=== PATIENT | male | born 1980 | race Hispanic/Latino ===

== ENCOUNTER 2022-07-01 12:41 | Inpatient (IN) | payer SELFPAY ==
[2022-07-01] MEDS ORDERED: MAGNESIUM SULFATE 1 gm IVPB 1 GM/100 ML BAG IV ONE (13:18)
[2022-07-01] MEDS ORDERED: AMIODARONE HCL 150 MG/3 ML INJ IV ONE (13:18)
[2022-07-01] MEDS ORDERED: D5W 100 ML IV ONE (13:19)
[2022-07-01] MEDS ORDERED: AMIODARONE IN DEXTROSE,ISO-OSM 0 MG/0 ML BAG IV ONE (13:22)
[2022-07-01 13:37] LABS: Absolute Lymphocytes (CBC) 2.5 K/uL (0.7-4.9); Hematocrit 54.3 % (39.6-49.0); Lymphocytes % 25.3 % (15.3-44.8); MCV 89.3 fL (80-100); RBC Red Blood Cell Count 6.08 M/uL (4.33-5.43)
--- NOTE | 2022-07-01 13:52 | RAD REPORT ---
EXAM DESCRIPTION: RAD - Chest Single View - 07/01/2022 1:14 pm CLINICAL HISTORY: PALPITATIONS Chest pain. COMPARISON: No comparisons FINDINGS: Portable technique limits examination quality. The lungs are grossly clear. The heart is normal in size. No displaced fractures. IMPRESSION: No acute intrathoracic process suspected.
[2022-07-01 13:57] LABS: Potassium 3.6 mmol/L (3.5-5.1); Troponin High Sensitivity 6.1 pg/mL (<58.9)
[2022-07-01] MEDS ORDERED: METOPROLOL TAR 25 MG TAB ONE (14:41)
[2022-07-01] MEDS ORDERED: AMIODARONE HCL 900 MG in Dextrose 5%-Water 482 ML IV SCH (15:00)
--- NOTE | 2022-07-01 15:26 | EDPHYS ---
Physician Documentation [facility] Name: Coy Samayoa Age: 42 yrs Sex: Male : 1980 Arrival Date: 07/01/2022 Time: 12:48 Bed 20 Private MD: ED Physician Hoang Wu HPI: 07/01 15:22 This 42 yrs old Male presents to ER via Ambulatory with complaints of rn Palpitations. 15:22 The patient presents with a history of irregular heart beat, heart racing. Context: The rn symptoms occur at rest. Onset: The symptoms/episode began/occurred today. Duration: The patient or guardian reports a single episode. Modifying factors: The symptoms are aggravated by nothing. The symptoms are alleviated by nothing. Severity of symptoms: At their worst the symptoms were moderate in the emergency department the symptoms are unchanged. The patient has experienced a previous episode. The patient has not recently seen a physician. Historical: - Allergies: 12:52 Alprazolam; ld1 - Home Meds: 12:52 Amiodarone Oral [Active]; ld1 - PMHx: 12:52 Hypertensive disorder; Atrial fibrillation; ld1 - PSHx: 12:52 None; ld1 - Immunization history:: Adult Immunizations up to date, Client reports having NOT received the Covid vaccine. - Social history:: Smoking status: Patient denies any tobacco usage or history of. Patient/guardian denies using alcohol. - Family history:: not pertinent. - Hospitalizations: : No recent hospitalization is reported. ROS: 15:22 Constitutional: Negative for fever, chills, and weight loss, Eyes: Negative for injury, rn pain, redness, and discharge, Neck: Negative for injury, pain, and swelling, Cardiovascular: + palpitations, neg for chest pain Respiratory: Negative for shortness of breath, cough, wheezing, and pleuritic chest pain, Abdomen/GI: Negative for abdominal pain, nausea, vomiting, diarrhea, and constipation, MS/Extremity: Negative for injury and deformity, Skin: Negative for injury, rash, and discoloration, Neuro: Negative for headache, weakness, numbness, tingling, and seizure. Exam: 15:22 Constitutional: This is a well developed, well nourished patient who is awake, alert, rn and in no acute distress. Head/Face: Normocephalic, atraumatic. Cardiovascular: Tachycardic, irregular Respiratory: No increased work of breathing, no retractions or nasal flaring. Abdomen/GI: Soft, non-tender Skin: Warm, dry MS/ Extremity: Pulses equal, no cyanosis. Neurovascular intact. Full, normal range of motion. Equal circumference. Neuro: Awake and alert, GCS 15 15:47 ECG was reviewed by the Attending Physician. rn Vital Signs: 12:50 Pulse 168; Resp 14; Temp 98.4(TE); Pulse Ox 99% on R/A; Weight 136.08 kg; Height 6 ft. ld1 3 in. (190.50 cm); Pain 0/10; 13:00 BP 145 / 94; Pulse 150; Resp 11; Pulse Ox 94% on R/A; em6 14:00 BP 122 / 95; Pulse 154; Resp 18; Pulse Ox 95% ; em6 15:00 BP 144 / 116; Pulse 97; Resp 18; Pulse Ox 95% on R/A; em6 16:00 BP 125 / 83; Pulse 78; Resp 13; Pulse Ox 96% on R/A; em6 17:00 BP 127 / 79; Pulse 70; Resp 14; Pulse Ox 98% on R/A; em6 18:00 BP 118 / 77; Pulse 67; Resp 14; Pulse Ox 96% on R/A; em6 19:21 BP 116 / 69; Pulse 69; Resp 18 S; Pulse Ox 98% on R/A; lg3 12:50 Body Mass Index 37.50 (136.08 kg, 190.50 cm) ld1 MDM: 12:49 Patient medically screened. rn 15:22 Differential diagnosis: arrythmia, dehydration, stress disorder. Data reviewed: vital rn signs, nurses notes, lab test result(s), EKG, and as a result, I will admit patient. Counseling: I had a detailed discussion with the patient and/or guardian regarding: the historical points, exam findings, and any diagnostic results supporting the discharge/admit diagnosis, lab results, radiology results, the need for further work-up and treatment in the hospital. Response to treatment: the patient's symptoms have mildly improved after treatment, and as a result, I will admit patient. Admission orders: after a detailed discussion of the patient's condition and case, the admit orders are written by me. 07/01 13:00 Order name: Basic Metabolic Panel; Complete Time: 14:04 rn 07/01 13:00 Order name: CBC with Diff; Complete Time: 14:04 rn 07/01 13:00 Order name: NT PRO-BNP; Complete Time: 14:04 rn 07/01 13:00 Order name: Troponin HS; Complete Time: 14:04 rn 07/01 16:13 Order name: SARS RAPID em6 07/01 16:53 Order name: SARS-COV-2 Antigen Rapid; Complete Time: 17:13 EDWY 07/01 13:00 Order name: XRAY Chest (1 view); Complete Time: 14:04 rn 07/01 20:08 Order name: Troponin High Sensitivity EDW[facility] 07/01 20:13 Order name: Thyroid Stimulating Hormone EDWY 07/02 03:53 Order name: CBC with Automated Diff EDWY 07/02 04:17 Order name: Basic Metabolic Panel ED[facility] 07/01 13:00 Order name: EKG; Complete Time: 13:01 rn 07/01 13:00 Order name: Cardiac monitoring; Complete Time: 13:02 rn 07/01 13:00 Order name: EKG - Nurse/Tech; Complete Time: 13:02 rn 07/01 13:00 Order name: IV Saline Lock; Complete Time: 13:58 rn 07/01 13:00 Order name: Labs collected and sent; Complete Time: 13:59 rn 07/01 13:00 Order name: O2 Per Protocol; Complete Time: 13:59 rn 07/01 13:00 Order name: O2 Sat Monitoring; Complete Time: 13:59 rn 07/01 17:14 Order name: Misc. Order: Stop amiodarone drip; Complete Time: 19:13 snw EC:47 Rate is 148 beats/min. Rhythm is irregularly irregular. QRS [place] is Normal. NM interval rn is normal. QRS interval is normal. QT interval is normal. No Q waves. T waves are Normal. No ST changes noted. Clinical impression: Atrial Fibrillation. Interpreted by me. Reviewed by me. Administered Medications: 19:13 Discontinued: amiodarone 900 mg, D5W 500 ml IVPB at 1 mg/min continuous; for 6 hrs, lg3 then change to 0.5 mg/min 13:26 Drug: amiodarone 150 mg Volume: 100 ml; Route: IVPB; Infused Over: 10 mins; Site: right em6 antecubital; 15:17 Follow up: Response: No adverse reaction; IV Status: Completed infusion em6 13:35 Drug: Magnesium Sulfate 1 grams Route: IVPB; Infused Over: 1 hrs; Site: right em6 antecubital; 14:40 Follow up: IV Status: Completed infusion; IV Intake: 250ml em6 14:37 Drug: Metoprolol 25 mg Route: PO; em6 15:16 Follow up: Response: No adverse reaction em6 15:00 Drug: amiodarone 900 mg, D5W 500 ml Route: IVPB; Rate: 1 mg/min; Site: right em6 antecubital; 19:18 Drug: morphine 4 mg Route: IVP; Infused Over: 4 mins; Site: right antecubital; lg3 19:21 Follow up: Response: No adverse reaction; Marked relief of symptoms lg3 21:10 Drug: Zofran (Ondansetron) 4 mg Route: IVP; Site: right antecubital; lg3 Disposition Summary: 07/01/22 15:26 Hospitalization Ordered Hospitalization Status: Inpatient Admission rn Provider: Jem Pierce rn Condition: Stable rn Problem: an acute exacerbation rn Symptoms: have improved rn Bed/Room Type: Standard rn Location: Telemetry/MedSurg (Inpatient)(07/02/22 11:37) Room Assignment: [facility](07/02/22 11:37) eb Diagnosis - Persistent atrial fibrillation - with RVR rn Forms: - Medication Reconciliation Form rn - SBAR form rn Signatures: Dispatcher [employer] EDWY Maria Isabel Miles RN RN Malathi Silvestre, SCHOOL SUPERINTENDENT-C SCHOOL SUPERINTENDENT-Csnw Hoang Wu MD MD rn Botello, Elizabeth eb Gibson, Lacie, RN RN lg3 Camilla White RN RN ld1 Marina Fonseca RN RN em6 Corrections: (The following items were deleted from the chart) 12:53 12:52 PSHx: Unable to Obtain; ld1 ld1 19:41 15:26 Telemetry/MedSurg (Inpatient) rn ryan 19:41 15:26 rn mw 07/02 11:37 07/01 19:41 [facility] ER HOLD mw eb 07/02 11:37 09/23 19:41 ERHOLD- mw eb
--- NOTE | 2022-07-01 15:26 | ER ---
Nurse's Notes [facility] Name: Coy Samayoa Age: 42 yrs Sex: Male : 1980 Arrival Date: 07/01/2022 Time: 12:48 Bed 20 Private MD: Diagnosis: Persistent atrial fibrillation-with RVR Presentation: 07/01 12:50 Chief complaint: Patient states: Palpitations and SOB for 1 hour. Pt reports being ld1 hospitalized and shocked for a fib previously. Coronavirus screen: At this time, the client does not indicate any symptoms associated with coronavirus-19. Ebola Screen: No symptoms or risks identified at this time. Initial Sepsis Screen: Does the patient meet any 2 criteria? No. Patient's initial sepsis screen is negative. Does the patient have a suspected source of infection? No. Patient's initial sepsis screen is negative. Risk Assessment: Do you want to hurt yourself or someone else? Patient reports no desire to harm self or others. Onset of symptoms was July 01, 2022. 12:50 Method Of Arrival: Ambulatory ld1 12:50 Acuity: MICHAEL 2 ld1 Triage Assessment: 12:52 General: Appears in no apparent distress. comfortable, Behavior is cooperative, ld1 anxious. Pain: Denies pain. EENT: No signs and/or symptoms were reported regarding the EENT system. Neuro: Level of Consciousness is awake, alert, obeys commands, Oriented to person, place, time, situation. Cardiovascular: Capillary refill < 3 seconds Patient's skin is warm and dry. Rhythm is atrial fibrillation. Respiratory: Airway is patent Respiratory effort is even, unlabored. GI: Abdomen is round non-distended. : No signs and/or symptoms were reported regarding the genitourinary system. Derm: No signs and/or symptoms reported regarding the dermatologic system. Musculoskeletal: No signs and/or symptoms reported regarding the musculoskeletal system. Historical: - Allergies: 12:52 Alprazolam; ld1 - Home Meds: 12:52 Amiodarone Oral [Active]; ld1 - PMHx: 12:52 Hypertensive disorder; Atrial fibrillation; ld1 - PSHx: 12:52 None; ld1 - Immunization history:: Adult Immunizations up to date, Client reports having NOT received the Covid vaccine. - Social history:: Smoking status: Patient denies any tobacco usage or history of. Patient/guardian denies using alcohol. - Family history:: not pertinent. - Hospitalizations: : No recent hospitalization is reported. Screenin:00 Abuse screen: Denies threats or abuse. Nutritional screening: No deficits noted. em6 Tuberculosis screening: No symptoms or risk factors identified. Fall Risk IV access (20 points). Total Gonzalez Fall Scale indicates No Risk (0-24 pts). Assessment: 13:00 General: Appears in no apparent distress. Behavior is cooperative. Pain: Denies pain. em6 Neuro: Connell Agitation-Sedation Scale (RASS): 0 - Alert and Calm Level of Consciousness is awake, alert, obeys commands, Oriented to person, place, time, situation. Cardiovascular: Reports palpitations, Heart tones present. Respiratory: Airway is patent Respiratory effort is even, unlabored, Respiratory pattern is regular, Breath sounds are clear bilaterally. GI: Abdomen is non-distended. : No signs and/or symptoms were reported regarding the genitourinary system. EENT: No signs and/or symptoms were reported regarding the EENT system. Derm: No signs and/or symptoms reported regarding the dermatologic system. Musculoskeletal: Circulation, motion, and sensation intact. Range of motion: intact in all extremities. 14:00 Reassessment: No changes from previously documented assessment. Patient and/or family em6 updated on plan of care and expected duration. Pain level reassessed. Pain: Denies pain. Neuro: Connell Agitation-Sedation Scale (RASS): 0 - Alert and Calm Level of Consciousness is awake, alert, obeys commands, Oriented to person, place, time, situation. Cardiovascular: Reports palpitations. Respiratory: Airway is patent. 15:00 Reassessment: Patient and/or family updated on plan of care and expected duration. Pain em6 level reassessed. Pain: Complains of pain in epigastric area Pain does not radiate. Pain currently is 4 out of 10 on a pain scale. Quality of pain is described as sharp. 15:00 Reassessment: notified provider of the pain and the shortness of breath. no new orders. em6 . Neuro: Connell Agitation-Sedation Scale (RASS): 0 - Alert and Calm Level of Consciousness is awake. Cardiovascular: Reports palpitations, shortness of breath, Heart tones present. 15:58 Reassessment: Patient and/or family updated on plan of care and expected duration. Pain em6 level reassessed. Patient states symptoms have improved. Neuro: Connell Agitation-Sedation Scale (RASS): 0 - Alert and Calm. Cardiovascular: Rhythm is sinus rhythm. 17:00 Reassessment: No changes from previously documented assessment. Patient and/or family em6 updated on plan of care and expected duration. Pain level reassessed. Patient states symptoms have improved. 18:00 Reassessment: No changes from previously documented assessment. Patient and/or family em6 updated on plan of care and expected duration. Pain level reassessed. Patient states symptoms have improved. 19:19 General: Appears in no apparent distress. comfortable, Behavior is calm, cooperative. lg3 Pain: Complains of pain in right lateral anterior chest Pain currently is 4 out of 10 on a pain scale. Quality of pain is described as pressure, Noted to be guarding, resistant to movement. Neuro: No deficits noted. Level of Consciousness is awake, alert, obeys commands, Oriented to person, place, time, situation. Cardiovascular: No deficits noted. Reports chest pain, Capillary refill < 3 seconds Clubbing of nail beds is absent JVD is absent Patient's skin is warm and dry. Respiratory: No deficits noted. Airway is patent Trachea midline Respiratory effort is even, unlabored, Respiratory pattern is regular, symmetrical, Breath sounds are clear bilaterally. GI: No deficits noted. No signs and/or symptoms were reported involving the gastrointestinal system. Abdomen is round non-distended. : No deficits noted. No signs and/or symptoms were reported regarding the genitourinary system. EENT: No deficits noted. No signs and/or symptoms were reported regarding the EENT system. Derm: No deficits noted. No signs and/or symptoms reported regarding the dermatologic system. Skin is intact, is healthy with good turgor, Skin is dry, Skin is normal, Skin temperature is warm. Musculoskeletal: No deficits noted. No signs and/or symptoms reported regarding the musculoskeletal system. Circulation, motion, and sensation intact. Range of motion: intact in all extremities. Vital Signs: 12:50 Pulse 168; Resp 14; Temp 98.4(TE); Pulse Ox 99% on R/A; Weight 136.08 kg; Height 6 ft. ld1 3 in. (190.50 cm); Pain 0/10; 13:00 BP 145 / 94; Pulse 150; Resp 11; Pulse Ox 94% on R/A; em6 14:00 BP 122 / 95; Pulse 154; Resp 18; Pulse Ox 95% ; em6 15:00 BP 144 / 116; Pulse 97; Resp 18; Pulse Ox 95% on R/A; em6 16:00 BP 125 / 83; Pulse 78; Resp 13; Pulse Ox 96% on R/A; em6 17:00 BP 127 / 79; Pulse 70; Resp 14; Pulse Ox 98% on R/A; em6 18:00 BP 118 / 77; Pulse 67; Resp 14; Pulse Ox 96% on R/A; em6 19:21 BP 116 / 69; Pulse 69; Resp 18 S; Pulse Ox 98% on R/A; lg3 12:50 Body Mass Index 37.50 (136.08 kg, 190.50 cm) ld1 ED Course: 12:48 Patient arrived in ED. rg4 12:49 Hoang Wu MD is Attending Physician. rn 12:52 Triage completed. ld1 12:52 Arm band placed on right wrist. ld1 12:54 Notified ED physician of vital signs. ld1 13:15 Inserted saline lock: 18 gauge in right antecubital area, using aseptic technique. jd3 Blood collected. 13:16 XRAY Chest (1 view) In Process Unspecified. EDMS 13:58 Patient has correct armband on for positive identification. bus driver/monitor on. Pulse em6 ox on. NIBP on. Warm blanket given. 14:07 Devon Tenorio RN is Primary Nurse. jd3 15:25 Jem Pierce MD is Hospitalizing Provider. rn 15:58 EKG done, by ED staff. em6 19:18 SARS RAPID Sent. lg3 19:19 No provider procedures requiring assistance completed. Patient admitted, IV remains in lg3 place. intact, No redness/swelling at site. 19:40 Primary Nurse role handed off by Devon Tenorio, MALIK mw2 19:40 role handed off by Marina Fonseca, MALIK mw2 21:10 Jane Robles, RN is Primary Nurse. lg3 07/02 08:19 Primary Nurse role handed off by Jane Robles RN eb Administered Medications: 07/01 19:13 Discontinued: amiodarone 900 mg, D5W 500 ml IVPB at 1 mg/min continuous; for 6 hrs, lg3 then change to 0.5 mg/min 13:26 Drug: amiodarone 150 mg Volume: 100 ml; Route: IVPB; Infused Over: 10 mins; Site: right em6 antecubital; 15:17 Follow up: Response: No adverse reaction; IV Status: Completed infusion em6 13:35 Drug: Magnesium Sulfate 1 grams Route: IVPB; Infused Over: 1 hrs; Site: right em6 antecubital; 14:40 Follow up: IV Status: Completed infusion; IV Intake: 250ml em6 14:37 Drug: Metoprolol 25 mg Route: PO; em6 15:16 Follow up: Response: No adverse reaction em6 15:00 Drug: amiodarone 900 mg, D5W 500 ml Route: IVPB; Rate: 1 mg/min; Site: right em6 antecubital; 19:18 Drug: morphine 4 mg Route: IVP; Infused Over: 4 mins; Site: right antecubital; lg3 19:21 Follow up: Response: No adverse reaction; Marked relief of symptoms lg3 21:10 Drug: Zofran (Ondansetron) 4 mg Route: IVP; Site: right antecubital; lg3 Medication: 19:19 VIS not applicable for this client. lg3 Intake: 14:40 IV: 250ml; Total: 250ml. em6 Outcome: 15:26 Decision to Hospitalize by Provider. malik 07/02 13:06 Admitted to Med/surg accompanied by tech, via wheelchair, room 203, Report called to lora felixidy Condition: stable 13:40 Patient left the ED. lora Signatures: Dispatcher [employer] EDMS Hoang Wu MD MD rn Garcia, Rubi rg4 Devon Tenorio RN RN Declan Arnold mw2 Garima Montaño Lacie, RN RN lg3 Camilla White RN RN ld1 Marina Fosneca RN RN em6 Maury Cordero RN RN [id number] Corrections: (The following items were deleted from the chart) 07/01 12:53 12:52 PSHx: Unable to Obtain; ld1 ld1 14:08 13:00 Inserted saline lock: 18 gauge in right antecubital area, using aseptic jd3 technique. Blood collected. jd3 15:10 13:00 BP 145 / 94; jd3 em6 15:18 13:40 IV Status: Completed infusion em6 em6
[2022-07-01 16:53] LABS: SARS-CoV-2 Antigen Rapid Res Negative (Negative)
[2022-07-01] MEDS: NA CHLORIDE 0.9% 1,000 ML IV SCH (18:00)
--- NOTE | 2022-07-01 18:36 | P.HP ---
Certification for Inpatient With expected LOS: <2 Midnights Patient will require the following post-hospital care: None Practitioner: I am a practitioner with admitting privileges, knowledge of patient current condition, hospital course, and medical plan of care. Services: Services provided to patient in accordance with Admission requirements found in Title 42 Section 412.3 of the Code of Federal Regulations Patient History Date of Service: 07/01/22 Primary Care Provider: Dr. Damon and Dr. Lucero Reason for admission: A. Fib with RVR History of Present Illness: Mr. Samayoa is a 42 yr old male with a recent diagnosis of a.fib. He was started per Dr. Lucero on amiodarone 3 weeks ago. He was prescribed Lisinopril 10mg daily as well. Recently pt's dose was increased to 20mg po daily and pt did not tolerate the increase. Pt's PCP discontinued Lisinopril and started pt on Losartan and HCTZ. Pt has not had anticoagulation. Upon consult with Dr. Mckeon, pt should be started on Aspirin 81mg po daily Allergies alprazolam Allergy (Verified 07/01/22 16:10) Anaphylaxis Home medications list reviewed: Yes (amiodarone, vit. D, Losartan, HCTZ) - Past Medical/Surgical History Has patient received pneumonia vaccine in the past: No Diabetic: No -: Heavy ETOH -: Palpitations over the past six months, pt recently dx a. fib RVR - Family History Family History: Reviewed- Non-Contributory - Social History Smoking Status: Current some day smoker Smoking therapy provided: No (marijuana) Alcohol use: Yes CD- Drugs: No Caffeine use: Yes Place of Residence: Home (Pt states he stopped drinking 3 weeks ago.) Review of Systems General: Unremarkable Eyes: Unremarkable ENT: Unremarkable Respiratory: Shortness of Breath Cardiovascular: Palpitations, Orthopnea Gastrointestinal: Unremarkable Genitourinary: Unremarkable Musculoskeletal: Unremarkable Integumentary: Other (diaphoresis) Neurological: Other (Pt feels like he gets anxious and that makes his heart take off) Physical Examination - Physical Exam General: Alert, Oriented x3 HEENT: Atraumatic Neck: 2+ carotid pulse no bruit Respiratory: Clear to auscultation bilaterally Cardiovascular: Other (Pt on amiodarone drip and converted to NSR 10 minutes prior to admission, EKG repeated. ), Irregular heart rate/rhythm Capillary refill: <2 Seconds Gastrointestinal: Normal bowel sounds Musculoskeletal: No clubbing, No swelling Integumentary: No rashes, Other (mild diaphoresis) Neurological: Normal speech, Normal strength at 5/5 x4 extr External genitalia: Deferred Rectal: Deferred - Studies Laboratory Data (last 24 hrs) 07/01/22 13:10: WBC 9.70, Hgb 18.7 H, Hct 54.3 H, Plt Count 256 07/01/22 13:10: Sodium 135 L, Potassium 3.6, BUN 15, Creatinine 1.30, Glucose 156 H Assessment and Plan - Problems (Diagnosis) (1) A-fib Current Visit: Yes Status: Acute Plan: Consult with Dr. Mckeon, pt was placed on an amio drip in ED and given IV lopressor. Pt converted just prior to admission. Dr. Mckeon returned to ED. Pt t o be taken off amio drip. Sotalol 80mg BID po. Monitor electrolytes, rhythm. Discharge Plan: Home Plan to discharge in: 24 Hours - Advance Directives Does patient have a Living Will: No Does patient have a Durable POA for Healthcare: No - Code Status/Comfort Care Code Status Assessed: Yes (Full) Code Status: Full Code Time Spent Managing Pts Care (In Minutes): 70
[2022-07-01] MEDS ORDERED: MORPHINE 4 MG/ML SYR ONE (19:25)
[2022-07-01] MEDS: SOTALOL HCL 80 MG TAB PO SCH (21:00)
[2022-07-01] MEDS ORDERED: ONDANSETRON 4 MG/2 ML VIAL ONE (21:16)
[2022-07-01] MEDS ORDERED: SOTALOL HCL 80 MG TAB ONE (22:00)
[2022-07-01] MEDS ORDERED: NA CHLORIDE 0.9% 1,000 ML ONE (22:01)
[2022-07-01 22:12] VITALS: BMI 39.5
[2022-07-01] MEDS: ACETAMINOPHEN 500 MG TAB PO PRN (22:39)
[2022-07-01] MEDS ORDERED: ACETAMINOPHEN 500 MG TAB ONE (22:45)
--- NOTE | 2022-07-02 01:09 | CON ---
Date of Consultation: 07/01/2022 Reason For Consultation: Atrial fibrillation with rapid ventricular response. History Of Present Illness: This is a 42-year-old male with history of AFib, on amiodarone, who came in with palpitations and was found to be in AFib with rapid ventricular response. He was given a shyann leticia of amiodarone and converted to sinus rhythm. Past Medical History: Hypertension and AFib. Medications: Refer to reconciliation sheet for detailed list. Allergies: ALPRAZOLAM. Family History: No premature coronary artery disease or cancer. Social History: Drinks alcohol. Does not use any drugs. Review of Systems: All systems reviewed and were negative except as mentioned in HPI. Physical Examination: Vital signs: Reviewed. Head and Neck: Pupils are equal, reactive to light. Intact eye movements. No JVD. No cervical lym phadenopathy. Neck supple. Thyroid is not enlarged. Lungs: Clear to auscultation bilaterally. No rhonchi, rales, or crackles. No accessory muscle use. Heart: Irregularly irregular. No extra sounds. Abdomen: Soft, nontender. Bowel sounds positive. No organomegaly. No masses or hernia. No rigidi ty or rebound. Extremities: No clubbing or cyanosis. Intact pulses. Skin: No rashes or nodules. Neurologic: Alert, awake. No acute focal deficits appreciated. Investigations: BUN 15, creatinine 1.3. Troponin 1st set was negative. Hemoglobin is 18.7. Assessment And Recommendations: Atrial fibrillation with rapid ventricular response. The patient wa s on oral amiodarone at home. He converted currently to sinus rhythm. Start him on sotalol 80 mg tw ice a day and after the third dose, if there is no QTc interval prolongation then patient can be rele ased on sotalol and baby aspirin and follow up as an outpatient. Thank you for the consult. /BEKA Voice ID: [id number] Report ID: [id number]
[2022-07-02] MEDS: NA CHLORIDE 0.9% 1,000 ML IV SCH ×3 (02:00→15:54)
[2022-07-02 03:52] LABS: Absolute Lymphocytes (CBC) 3.2 K/uL (0.7-4.9); Hematocrit 49.2 % (39.6-49.0); Lymphocytes % 29.6 % (15.3-44.8); MCV 89.6 fL (80-100); MPV 9.2 fL (7.6-11.3); RBC Red Blood Cell Count 5.49 M/uL (4.33-5.43)
[2022-07-02 04:07] LABS: Potassium 3.8 mmol/L (3.5-5.1)
[2022-07-02] MEDS ORDERED: NA CHLORIDE 0.9% 1,000 ML ONE ×2 (05:12→07:41)
[2022-07-02] MEDS: SOTALOL HCL 80 MG TAB PO SCH ×2 (07:37→20:10)
[2022-07-02] MEDS ORDERED: ASPIRIN EC 81 MG TAB PO ONE (07:40)
[2022-07-02] MEDS ORDERED: SOTALOL HCL 80 MG TAB ONE (07:41)
[2022-07-02] MEDS ORDERED: ASPIRIN EC 81 MG TAB PO SCH (09:00)
[2022-07-02] MEDS: ACETAMINOPHEN 500 MG TAB PO PRN (12:24)
[2022-07-02] MEDS ORDERED: ACETAMINOPHEN 500 MG TAB ONE (12:32)
--- NOTE | 2022-07-02 14:44 | P.DS ---
Discharge Date: 07/02/22 Primary Care Provider: Dr. Damon and Dr. Lucero Disposition: ROUTINE DISCHARGE Discharge Condition: GOOD Reason for Admission: A. Fib with RVR Consultations: Cardiology Brief History of Present Illness: Mr. Samayoa is a 42 yr old male with a recent diagnosis of a.fib. He was started per Dr. Lucero on amiodarone 3 weeks ago. He was prescribed Lisinopril 10mg daily as well. Recently pt's dose was increased to 20mg po daily and pt did not tolerate the increase. Pt's PCP discontinued Lisinopril and started pt on Losartan and HCTZ. Pt has not had anticoagulation. Upon consult with Dr. Mckeon, pt should be started on Aspirin 81mg po daily Hospital Course: Patient has done well during hospitalization. Plan to discharge after his third dose of sotalol. We will make sure there is no QT prolongation prior to discharge. He will be going home with a baby aspirin. Outpatient cardiology follow-up as well. Vital Signs/Physical Exam: Temp Pulse Resp BP Pulse Ox 98.2 F 60 16 120/73 98 07/02/22 07:37 07/02/22 07:37 07/02/22 07:37 07/02/22 07:37 07/02/22 07:37 General: Alert, In no apparent distress, Oriented x3 Laboratory Data at Discharge: WBC 10.70 K/uL (4.3-10.9) 07/02/22 03:40 Hgb 17.0 g/dL (13.6-17.9) D 07/02/22 03:40 Hct 49.2 % (39.6-49.0) H 07/02/22 03:40 Plt Count 222 K/uL (152-406) 07/02/22 03:40 Sodium 136 mmol/L (136-145) 07/02/22 03:40 Potassium 3.8 mmol/L (3.5-5.1) 07/02/22 03:40 BUN 13 mg/dL (7-18) 07/02/22 03:40 Creatinine 1.10 mg/dL (0.55-1.3) 07/02/22 03:40 Glucose 110 mg/dL (74-106) H 07/02/22 03:40 Home Medications: Aspirin Chewable [Aspirin Chewable*] 81 mg PO DAILY 07/02/22 Losartan Potassium 50 mg PO DAILY 07/02/22 Sotalol HCl [Betapace*] 80 mg PO BID #60 tab 07/02/22 New Medications: Sotalol HCl [Betapace*] 80 mg PO BID #60 tab Physician Discharge Instructions: -DC IV and DC home -Follow-up with PCP in 1 to 2 weeks -Follow-up with Cardiology in 1 to 2 weeks -Please call Dr. Pierce at [phone] if any questions regarding hospital stay -Please call nursing station at [phone] if any nursing or medication questions -Return to the emergency room if symptoms worsen Diet: AHA Activity: Fall precautions Followup: NONE,NONE [Primary Care Provider] - Time spent managing pt's care (in minutes): 35
--- NOTE | 2022-07-02 18:31 | PN ---
Date of Progress Note: 07/02/2022 Subjective: Seen at bedside, doing clinically well. On sotalol and still in sinus rhythm. Physical Examination: Vital Signs: Reviewed. Head And Neck: Pupils are equal and reactive to light. Intact eye movements. No JVD. No cervical lymphadenopathy. Neck supple. Thyroid is not enlarged. Lungs: Clear to auscultation bilaterally. No rhonchi, rales, or crackles. No accessory muscle use. Heart: Regular rate and rhythm. No extra sounds. Abdomen: Soft, nontender. Bowel sounds positive. No organomegaly. No masses or hernia. No rigidi ty or rebound. Extremities: No edema, clubbing, or cyanosis. Intact pulses. Skin: No rashes. Neurologic: Alert, awake, and oriented x3. No acute focal deficits appreciated. Investigations: Reviewed. Assessment And Recommendations: Atrial fibrillation, back in sinus rhythm. Continue sotalol 80 mg t wice a day. After 3rd dose to obtain an EKG. If QTc interval is normal, patient can be released and follow up as an outpatient. /BEKA Voice ID: [id number] Report ID: [id number]
[2022-07-03 23:00] VITALS: TEMP 98.4
[2022-07-03 23:43] VITALS: BP 116/69; O2SAT 98
--- NOTE | 2022-07-04 14:13 | EKG ---
Test Date: 2022-07-01 Test Time: 15:57:55 Anesthesia Assistant: MEASUREMENT RESULTS: Intervals: Rate: 82 MN: 160 QRSD: 94 QT: 368 QTc: 429 [place]: P: 66 MN: 160 QRS: 31 T: 61 INTERPRETIVE STATEMENTS: Normal sinus rhythm Normal ECG Compared to ECG 07/01/2022 12:57:25 Atrial flutter no longer present ST (T wave) deviation no longer present Electronically Signed On 07-04-22 14:09:55 CDT by Rashad Mckeon
--- NOTE | 2022-07-04 14:14 | EKG ---
Test Date: 2022-07-01 Test Time: 12:57:25 Loft Rigger: ROSSY MEASUREMENT RESULTS: Intervals: Rate: 148 HI: QRSD: 86 QT: 334 QTc: 524 [place]: P: HI: QRS: 40 T: 81 INTERPRETIVE STATEMENTS: Atrial flutter with variable AV block Nonspecific ST abnormality Abnormal ECG No previous ECG available for comparison Electronically Signed On 07-04-22 14:10:22 CDT by Rashad Mckeon
== END 2022-07-02 21:10 | disposition home or self-care (01) | DRG 310 ==
LOC: ER 12:41 → ERHOLD 17:09 → 2ND 07-02 13:10
PROVIDERS: ADMIT Hospitalist; ATTEND Hospitalist
DX: I48.91 Unspecified atrial fibrillation (principal); I10 Essential (primary) hypertension; F17.200 Nicotine dependence, unspecified, uncomplicated; Z88.8 Allergy status to other drugs, medicaments and biological substances; Z28.310 Unvaccinated for COVID-19; Z20.822 Contact with and (suspected) exposure to COVID-19
CPT/HCPCS: 36415; 71045; 80048; 83880; 84443; 84484; 85025; 87811; 93005; 96365; 96375; 99285; J0282; J2405; J3475; J7030; J7060